=== PATIENT | female | born 1980 | race Caucasian/White ===

== ENCOUNTER 2018-11-09 08:45 | Observation (INO) | payer BC ==
[~2018-11-09] VITALS: Ht 157.5 cm; Wt 59.8 kg
[~2018-11-09 08:45] MED LIST: ACCUPRIL5 MG; ADVAIR DISK1 IN; ADVAIR DISK2 IN; ADVAIR DISK2 INH; ADVAIR DISKU IN; ALBUTEROL S2.5 MG/.5 IN; ALBUTEROL SUL0.083 % IN; ALBUTEROL2.5 MG/3 M IN; AMITRIPTYLIN100 MG PO; AMITRIPTYLIN25 MG PO; AUGMENTIN500TAB PO; CIPRO500 MG OR; DILAUDID4 MG PO; DUONEB IN; EPIPEN0.3 MG IM; FLONASE SPRAY50 MC1 INH; FLONASE0.05 %; HOME NEBULIZER; IBUPROFEN800 MG PO; IMITREX25 MG PO; IPRATROPIU0.5 MG/3 M IN; LORTAB5 OR; MAXALT10 MG PO; MEDDOSEPAK OR; METHOCARBAM500 MG PO; OXYCODONE HCL E40 MG PO; PHENERGAN25 MG/TAB PO; PREDNISONE10 MG PO; PREDNISONE20 MG OR; PREDNISONE50 MG PO; PROAIR HFA IN; PROVENTIL0.083 % IN; ROBITUSSIN AC10 ML OR; ROXICODONE30 MG PO; ROXICODONE5 MG OR; SOMA250 MG PO; VALIUM5 MG PO; VENTOLIN HF1 IN; VENTOLIN HFA IN; ZITHROMAX250 MG PO; ZOFRAN ODT4 MG OR; ZPAK PO; [UNRECOGNIZED DRUG - REMARK]
[2018-11-09] MEDS ORDERED: SINGULAIR10 MG PO (09:16)
[2018-11-09] MEDS ORDERED: DICLOFENAC SODI75 MG PO (09:20)
[2018-11-09] MEDS ORDERED: BACLOFEN10 MG PO (09:20)
[2018-11-09] MEDS ORDERED: FLOVENT HF220 MCG/AC (09:21)
[2018-11-09] MEDS ORDERED: GABAPENTIN100 MG PO (09:22)
[2018-11-09] MEDS ORDERED: LIDODERM5 % EX (09:24)
[2018-11-09] MEDS ORDERED: MORPHINE SUL30 M3 PO (09:25)
[2018-11-09 09:26] LABS: HEMATOCRIT 41.3 % (37.0-47.0); HEMOGLOBIN 13.3 g/dl (12.0-16.0); IMMATURE GRANULOCYTES 0.1 % (0.0-5.0); MEAN CELL VOLUME 88.4 fL CALC (80.0-100.0); MEAN CORPUSCULAR HGB 28.5 pG CALC (26.0-32.0); MEAN CORPUSCULAR HGB CONC 32.2 g/L CALC (32.0-36.0); NEUT# 3.32 thou/uL (2.00-7.15); RED BLOOD COUNT 4.67 mill/uL (4.20-5.60); RED CELL DISTRI WIDTH 11.9 % (11.5-15.5)
[2018-11-09] MEDS ORDERED: OXYCODONE20 M1 PO (09:27)
[2018-11-09] MEDS ORDERED: PROAIR HFA108 MCG/AC (09:27)
[2018-11-09 09:42] LABS: ALBUMIN 4.3 g/dL (3.2-5.0); ALKALINE PHOSPHATASE 50 u/l (38-126); ANION GAP 13 (6-22 (CALC)); BILIRUBIN, TOTAL 0.3 mg/dL (0.0-1.4); BUN 17 mg/dL (7-17); BUN/CREATININE RATIO 22 (12-20 (CALC)); CARBON DIOXIDE 26 mmol/l (22-30); CHLORIDE 105 mmol/l (95-108); CREATININE 0.8 mg/dL (0.5-1.0); GFR > 60 ML/MIN (>=60 (CALC)); GFR FOR AFR.AMER. > 60 ML/MIN (>=60 (CALC)); SGOT/AST 18 u/l (14-36); SODIUM 140 mmol/l (137-146); TOTAL PROTEIN 6.9 g/dL (6.3-8.2)
[2018-11-09 09:52] LABS: MYOGLOBIN 42 ng/mL (0 - 62)
[2018-11-09 12:05] VITALS: BP 146/95
[2018-11-09 16:59] VITALS: BP 136/85
[2018-11-09 20:16] VITALS: BP 125/77
[2018-11-10 04:39] VITALS: BP 115/69
[2018-11-10 05:11] LABS: HEMATOCRIT 38.1 % (37.0-47.0); HEMOGLOBIN 12.4 g/dl (12.0-16.0); IMMATURE GRANULOCYTES 0.4 % (0.0-5.0); MEAN CELL VOLUME 88.6 fL CALC (80.0-100.0); MEAN CORPUSCULAR HGB 28.8 pG CALC (26.0-32.0); MEAN CORPUSCULAR HGB CONC 32.5 g/L CALC (32.0-36.0); NEUT# 9.45 thou/uL (2.00-7.15); RED BLOOD COUNT 4.3 mill/uL (4.20-5.60)
[2018-11-10 05:25] LABS: ALBUMIN 3.6 g/dL (3.2-5.0); ALKALINE PHOSPHATASE 47 u/l (38-126); ANION GAP 11 (6-22 (CALC)); BILIRUBIN, TOTAL 0.2 mg/dL (0.0-1.4); BUN 16 mg/dL (7-17); BUN/CREATININE RATIO 26 (12-20 (CALC)); CARBON DIOXIDE 24 mmol/l (22-30); CHLORIDE 109 mmol/l (95-108); CREATININE 0.6 mg/dL (0.5-1.0); GFR > 60 ML/MIN (>=60 (CALC)); GFR FOR AFR.AMER. > 60 ML/MIN (>=60 (CALC)); POTASSIUM 4.3 mmol/l (3.5-5.1); SGOT/AST 13 u/l (14-36); SODIUM 140 mmol/l (137-146); TOTAL PROTEIN 6.1 g/dL (6.3-8.2)
[2018-11-10 07:55] VITALS: BP 110/56
[2018-11-10] MEDS ORDERED: PROAIR HFA108 MCG/AC IN (11:01)
[2018-11-10] MEDS ORDERED: PREDNISONE50 MG PO ×2 (11:06→11:08)
[2018-11-10] MEDS ORDERED: BREO ELLIPTA1 INH IN (11:06)
[2018-11-10] MEDS ORDERED: DOXYCYCLINE100 MG PO (11:06)
[2018-11-10] MEDS ORDERED: PEPCID40 MG PO (11:12)
[2018-11-10] MEDS ORDERED: FLONASE AL50 MCG/ACT NAB (11:12)
[2018-11-10] MEDS ORDERED: DOXYCYCL HYC100 MG PO (11:14)
== END 2018-11-10 14:26 | disposition home or self-care (01) | DRG 203 ==
LOC: ED 08:45 → ED-I 10:54 → ED 11:26 → MS2 11:27
PROVIDERS: Emergency Medicine; ADMIT Internal Medicine Nephrology; ATTEND Internal Medicine Nephrology
DX: J45.901 Unspecified asthma with (acute) exacerbation (principal); M48.02 Spinal stenosis, cervical region; G43.909 Migraine, unspecified, not intractable, without status migrainosus; F17.210 Nicotine dependence, cigarettes, uncomplicated; G89.4 Chronic pain syndrome; E21.3 Hyperparathyroidism, unspecified
CPT/HCPCS: G0378; J1650

== ENCOUNTER 2020-08-08 17:39 | Emergency (ER) | payer BC ==
[~2020-08-08] VITALS: Ht 157.5 cm; Wt 61.0 kg
[~2020-08-08 17:39] MED LIST changes: +BACLOFEN10 MG PO; +BREO ELLIPTA1 INH IN; +DICLOFENAC SODI75 MG PO; +DOXYCYCL HYC100 MG PO; +DOXYCYCLINE100 MG PO; +FLONASE AL50 MCG/ACT NAB; +FLOVENT HF220 MCG/AC; +GABAPENTIN100 MG PO; +LIDODERM5 % EX; +MORPHINE SUL30 M3 PO; +OXYCODONE20 M1 PO; +PEPCID40 MG PO; +PROAIR HFA108 MCG/AC; +PROAIR HFA108 MCG/AC IN; +SINGULAIR10 MG PO
[2020-08-08] MEDS ORDERED: PREDNISONE20 MG PO (18:25)
[2020-08-08 18:55] VITALS: BP 145/83
== END 2020-08-08 18:56 | disposition home or self-care (01) | DRG 203 ==
LOC: ED 17:39
DX: J45.901 Unspecified asthma with (acute) exacerbation (principal); J44.9 Chronic obstructive pulmonary disease, unspecified; Z20.828 Contact with and (suspected) exposure to other viral communicable diseases

== ENCOUNTER 2020-09-07 10:20 | Emergency (ER) | payer BC ==
[~2020-09-07] VITALS: Ht 157.5 cm; Wt 65.0 kg
[~2020-09-07 10:20] MED LIST changes: +PREDNISONE20 MG PO
[2020-09-07] MEDS ORDERED: PREDNISONE20 MG PO (12:32)
[2020-09-07 12:40] VITALS: BP 160/98
== END 2020-09-07 12:40 | disposition home or self-care (01) | DRG 203 ==
LOC: ED 10:20
DX: J45.901 Unspecified asthma with (acute) exacerbation (principal); J44.9 Chronic obstructive pulmonary disease, unspecified

== ENCOUNTER 2020-10-01 21:46 | Emergency (ER) | payer BC ==
[~2020-10-01] VITALS: Ht 157.5 cm; Wt 59.0 kg
[2020-10-01 23:48] VITALS: BP 142/77
== END 2020-10-02 00:02 | disposition home or self-care (01) | DRG 203 ==
LOC: ED 21:46
DX: J45.901 Unspecified asthma with (acute) exacerbation (principal); J44.9 Chronic obstructive pulmonary disease, unspecified

== ENCOUNTER 2020-10-04 22:34 | Emergency (ER) | payer BC ==
[~2020-10-04] VITALS: Ht 157.5 cm; Wt 59.0 kg
[2020-10-05] MEDS ORDERED: PREDNISONE10 MG PO (02:13)
[2020-10-05 03:23] VITALS: BP 148/82
== END 2020-10-05 03:23 | disposition home or self-care (01) | DRG 203 ==
LOC: ED 22:34
DX: J45.901 Unspecified asthma with (acute) exacerbation (principal); J44.9 Chronic obstructive pulmonary disease, unspecified

== ENCOUNTER 2020-10-25 21:27 | Emergency (ER) | payer BC ==
[~2020-10-25] VITALS: Ht 157.5 cm; Wt 59.0 kg
[2020-10-25 22:52] LABS: HEMATOCRIT 42.3 % (37.0-47.0); HEMOGLOBIN 13.3 g/dl (12.0-16.0); IMMATURE GRANULOCYTES 0.2 % (0.0-5.0); MEAN CELL VOLUME 89.1 fL CALC (80.0-100.0); MEAN CORPUSCULAR HGB CONC 31.4 g/dL CAL (32.0-36.0); NEUT# 3.62 thou/uL (2.00-7.15); RED BLOOD COUNT 4.75 mill/uL (4.20-5.60); RED CELL DISTRI WIDTH 12.5 % (11.5-15.5)
[2020-10-25 23:11] LABS: ALBUMIN 4.2 g/dL (3.2-5.0); ALKALINE PHOSPHATASE 47 u/l (38-126); BUN 17 mg/dL (7-17); BUN/CREATININE RATIO 20 (12-20 (CALC)); CHLORIDE 104 mmol/l (95-108); CREATININE 0.9 mg/dL (0.5-1.0); GFR > 60 ML/MIN (>=60 (CALC)); GFR FOR AFR.AMER. > 60 ML/MIN (>=60 (CALC)); POTASSIUM 3.9 mmol/l (3.5-5.1); SGOT/AST 20 u/l (14-36); SODIUM 137 mmol/l (137-146); TOTAL PROTEIN 7.1 g/dL (6.3-8.2)
[2020-10-25 23:16] LABS: ANION GAP 8 (6-22 (CALC)); BILIRUBIN, TOTAL 0.5 mg/dL (0.0-1.4); CARBON DIOXIDE 29 mmol/l (22-30)
[2020-10-26] MEDS ORDERED: ZPAK PO (00:50)
[2020-10-26] MEDS ORDERED: MEDDOSEPAK PO (00:50)
[2020-10-26 00:55] VITALS: BP 123/65
== END 2020-10-26 01:06 | disposition home or self-care (01) | DRG 203 ==
LOC: ED 21:27
PROVIDERS: Emergency Medicine
DX: J45.901 Unspecified asthma with (acute) exacerbation (principal); J06.9 Acute upper respiratory infection, unspecified; J44.9 Chronic obstructive pulmonary disease, unspecified; E21.3 Hyperparathyroidism, unspecified; Z20.822 Contact with and (suspected) exposure to COVID-19

== ENCOUNTER 2021-03-03 15:10 | Emergency (ER) | payer BC ==
[~2021-03-03 15:10] MED LIST changes: +MEDDOSEPAK PO
== END 2021-03-03 15:35 | disposition left against medical advice (07) | DRG 951 ==
LOC: ED 15:10 → LWOBS 15:35
DX: Z53.21 Procedure and treatment not carried out due to patient leaving prior to being seen by health care provider (principal)

== ENCOUNTER 2021-09-26 06:43 | Emergency (ER) | payer BC ==
[~2021-09-26] VITALS: Ht 157.5 cm; Wt 54.2 kg
[2021-09-26 07:37] LABS: URINE BILIRUBIN - DIPSTICK NEGATIVE (NEGATIVE); URINE BLOOD DIPSTICK LARGE (NEGATIVE); URINE GLUCOSE - DIPSTICK NEGATIVE (NEGATIVE); URINE KETONE NEGATIVE (NEGATIVE); URINE LEUK ESTERASE MODERATE (NEGATIVE); URINE NITRITE - DIPSTICK POSITIVE (Negative); URINE PH 6.5 (4.5-8.0); URINE PROTEIN - DIPSTICK 100 mg/dL (NEG-TRACE); URINE SPECIFIC GRAVITY >=1.030; URINE UROBILINOGEN - DIPSTICK 0.2 E.U./dL (0.2)
[2021-09-26 07:38] LABS: URINE COLOR DK. YELLOW
[2021-09-26 07:45] LABS: URINE RBC 50-100 RBC/hpf (0-5); URINE WBC >100 WBC/hpf (0-5)
[2021-09-26] MEDS ORDERED: SUBOXONE1 MI1 SL (07:53)
[2021-09-26] MEDS ORDERED: BACTRIM DS1 TAB PO (08:02)
[2021-09-26] MEDS ORDERED: PYRIDIUM200 MG PO (08:02)
[2021-09-26 08:10] VITALS: BP 174/95
== END 2021-09-26 08:10 | disposition home or self-care (01) | DRG 690 ==
LOC: ED 06:43
PROVIDERS: Emergency Medicine
DX: N39.0 Urinary tract infection, site not specified (principal); B96.4 Proteus (mirabilis) (morganii) as the cause of diseases classified elsewhere; J44.9 Chronic obstructive pulmonary disease, unspecified; E21.3 Hyperparathyroidism, unspecified; Z87.440 Personal history of urinary (tract) infections

== ENCOUNTER 2021-10-05 13:35 | Emergency (ER) | payer BC ==
[~2021-10-05] VITALS: Ht 157.5 cm; Wt 53.9 kg
[~2021-10-05 13:35] MED LIST changes: +BACTRIM DS1 TAB PO; +PYRIDIUM200 MG PO; +SUBOXONE1 MI1 SL
[2021-10-05 18:30] LABS: HEMATOCRIT 43.1 % (37.0-47.0); IMMATURE GRANULOCYTES 0.1 % (0.0-5.0); MEAN CELL VOLUME 88.5 fL CALC (80.0-100.0); MEAN CORPUSCULAR HGB 28.7 pG CALC (26.0-32.0); MEAN CORPUSCULAR HGB CONC 32.5 g/dL CAL (32.0-36.0); NEUT# 4.94 thou/uL (2.00-7.15); RED BLOOD COUNT 4.87 mill/uL (4.20-5.60); RED CELL DISTRI WIDTH 12.4 % (11.5-15.5)
[2021-10-05 18:33] LABS: ALBUMIN 4.7 g/dL (3.2-5.0); ALKALINE PHOSPHATASE 61 u/l (38-126); ANION GAP 13 (6-22 (CALC)); BILIRUBIN, TOTAL 0.6 mg/dL (0.0-1.4); BUN 17 mg/dL (7-17); BUN/CREATININE RATIO 21 (12-20 (CALC)); CARBON DIOXIDE 24 mmol/l (22-30); CHLORIDE 102 mmol/l (95-108); CREATININE 0.8 mg/dL (0.5-1.0); GFR > 60 ML/MIN (>=60 (CALC)); GFR FOR AFR.AMER. > 60 ML/MIN (>=60 (CALC)); SGOT/AST 25 u/l (14-36); SODIUM 135 mmol/l (137-146); TOTAL PROTEIN 7.8 g/dL (6.3-8.2)
[2021-10-05 21:26] LABS: URINE BLOOD DIPSTICK NEGATIVE (NEGATIVE); URINE COLOR YELLOW; URINE GLUCOSE - DIPSTICK NEGATIVE (NEGATIVE); URINE KETONE TRACE mg/dL (NEGATIVE); URINE LEUK ESTERASE NEGATIVE (NEGATIVE); URINE PROTEIN - DIPSTICK NEGATIVE (NEG-TRACE); URINE SPECIFIC GRAVITY >=1.030; URINE UROBILINOGEN - DIPSTICK 0.2 E.U./dL (0.2)
[2021-10-05 21:28] LABS: URINE BILIRUBIN - DIPSTICK SMALL (NEGATIVE); URINE NITRITE - DIPSTICK NEGATIVE (Negative)
[2021-10-05 22:05] VITALS: BP 148/90
== END 2021-10-05 22:05 | disposition home or self-care (01) | DRG 392 ==
LOC: ED 13:35
PROVIDERS: Emergency Medicine
DX: R10.9 Unspecified abdominal pain (principal); E21.3 Hyperparathyroidism, unspecified; J44.9 Chronic obstructive pulmonary disease, unspecified; Z87.440 Personal history of urinary (tract) infections

== ENCOUNTER 2022-10-18 15:09 | Emergency (ER) | payer BC ==
[~2022-10-18] VITALS: Ht 157.5 cm; Wt 50.0 kg
[2022-10-18 15:14] VITALS: BP 140/96
[2022-10-18 15:30] VITALS: BP 125/82
[2022-10-18] MEDS ORDERED: IMITREX25 MG PO (15:46)
[2022-10-18 16:00] VITALS: BP 136/85
[2022-10-18 16:30] VITALS: BP 122/64
[2022-10-18 17:00] VITALS: BP 113/77
[2022-10-18] MEDS ORDERED: ZOFRAN4 MG/TAB PO (17:20)
[2022-10-18] MEDS ORDERED: VENTOLIN HFA108 MCG PO (17:20)
[2022-10-18 17:29] VITALS: BP 113/77
== END 2022-10-18 17:35 | disposition home or self-care (01) | DRG 103 ==
LOC: ED 15:09
DX: G43.909 Migraine, unspecified, not intractable, without status migrainosus (principal); R11.2 Nausea with vomiting, unspecified

== ENCOUNTER 2023-09-02 00:09 | Emergency (ER) | payer BC ==
[~2023-09-02 00:09] MED LIST changes: +ORPHENADRINE100 MG PO; +VENTOLIN HFA108 MCG PO; +ZOFRAN4 MG/TAB PO
[2023-09-02 00:36] LABS: BASO% 0.6 % (0-3); EOS% 3.7 % (0-8); HEMATOCRIT 39.3 % (37.0-47.0); IMMATURE GRANULOCYTES 1.7 % (0.0-5.0); LYMPH% 75.4 % (15-41); MEAN CORPUSCULAR HGB 29.3 pG CALC (26.0-32.0); MONO% 3.5 % (2-13); NEUT# 1.62 thou/uL (2.00-7.15); NEUT% 15.1 % (42-76); RED BLOOD COUNT 3.89 mill/uL (4.20-5.60); RED CELL DISTRI WIDTH 12.8 % (11.5-15.5)
[2023-09-02 00:44] LABS: HEMOGLOBIN 11.4 g/dl (12.0-16.0)
[2023-09-02 01:06] LABS: BILIRUBIN, TOTAL 0.5 mg/dL (0.02-1.3); CREATININE 1.3 mg/dL (0.5-1.0)
[2023-09-02 01:18] LABS: ALBUMIN 3.3 g/dL (3.2-5.0); TOTAL PROTEIN 5.4 g/dL (6.3-8.2)
[2023-09-02 01:19] LABS: POTASSIUM 5.9 mmol/l (3.5-5.1)
[2023-09-02 04:00] VITALS: BP 0/0
== END 2023-09-02 04:00 | disposition expired | DRG 298 ==
LOC: ED 00:09
PROVIDERS: Family Medicine
PROC: 5A12012 Performance of Cardiac Output, Single, Manual (ICD-10-PCS; principal; 2023-09-02)
DX: I46.9 Cardiac arrest, cause unspecified (principal); J44.9 Chronic obstructive pulmonary disease, unspecified; E21.3 Hyperparathyroidism, unspecified